=== PATIENT | female | born 1965 | race Caucasian/White ===

== ENCOUNTER 2017-12-09 11:46 | Outpatient (CLI) | payer OTHER ==
--- NOTE | 2017-12-09 12:21 | RAD ---
CHEST TWO VIEWS: History: Persistent cough and asthma. Comparison: None. FINDINGS: There is a peripheral nodule in the right midlung. No pneumothorax or pulmonary effusion. There is at electatic scarring in the right lower lobe. IMPRESSION: 1. Nodule in the peripheral right midlung. Given it is well defined and hyperdense nature, this may r epresent a granuloma. Either a follow up CT of the chest in 3 months or radiographic follow up recomm ended. 2. Atelectatic scarring in the right lung base. POS: [facility]
== END 2017-12-09 11:47 | disposition home or self-care (01) ==
LOC: SCSRAD 11:46
PROVIDERS: ATTEND Family Medicine
DX: J45.909 Unspecified asthma, uncomplicated (principal); J98.4 Other disorders of lung; R91.1 Solitary pulmonary nodule
CPT/HCPCS: 71046

== ENCOUNTER 2018-01-20 16:03 | Outpatient (CLI) | payer OTHER | END 2018-01-20 16:04 | disposition home or self-care (01) | LOC: BICMAMMO 16:03 | PROVIDERS: ATTEND Obstetrics & Gynecology | DX: Z12.31 Encounter for screening mammogram for malignant neoplasm of breast (principal); Z80.3 Family history of malignant neoplasm of breast | CPT/HCPCS: 77063; 77067 ==

== ENCOUNTER 2019-02-22 08:28 | Outpatient (CLI) | payer OTHER ==
[~2019-02-22 08:28] MED LIST: EPINEPHrine 1 MG/ML AMP ONE; Iopamidol 300 61% 50 ML VIAL FS ONE; Lidocaine 1% PF 10 ML AMP ONE; Sodium Chloride 0.9% (PF) 10 ML VIAL ONE
--- NOTE | 2019-02-22 10:25 | CT ---
Right upper extremity CT scan post arthrogram contrast: HISTORY: Right wrist pain Exam performed following right wrist arthrogram: FINDINGS: Contrast media is noted within the radiocarpal joint. No evidence for extension of contrast into the distal radial ulnar joint or into the middle carpal row. Minimal subchondral cystic changes are noted involving the scaphoid bone, distally as well as proximally and medially adjacent to the lunate bone. No evidence for triangle fibrocartilage complex tear. No evidence for a scapholunate ligament tear. No acute fracture or dislocation. No evidence for avascular necrosis. IMPRESSION: Minimal degenerative subchondral cystic changes of the proximal and distal scaphoid bone. No evidence for a triangular fibrocartilage complex tear. No evidence for scapholunate ligament tear.
--- NOTE | 2019-02-22 10:28 | RAD ---
Exam: Right wrist arthrogram: HISTORY: Pain right wrist Fluoroscopy time 2.0 minutes 0.67 gallagher centimeters squared Following informed consent the wrist was prepped and draped in usual sterile fashion. Local anesthesi a was obtained with 1% Xylocaine. A 23-gauge butterfly needle was introduced into the dorsal radial scaphoid joint and approximately 4 cc of iodinated contrast media was injected. Films confirm contras t within the radiocarpal joint without extension into the distal radioulnar joint or within the middle carpal row. IMPRESSION: Successful, unremarkable right wrist arthrogram. Following the arthrogram the patient was moved to CT for post arthrogram CT.
== END 2019-02-22 08:29 | disposition home or self-care (01) ==
LOC: RAD 08:28
PROVIDERS: ATTEND Orthopaedic Surgery
DX: M25.531 Pain in right wrist (principal)
CPT/HCPCS: 25246; J0171; J2001; Q9967

== ENCOUNTER 2019-03-15 13:31 | Outpatient (CLI) | payer OTHER ==
--- NOTE | 2019-03-15 15:25 | MMO ---
Bilateral MAMMO Bilat Screen [facility]. CLINICAL HISTORY: Patient is 53 years old and is seen for screening. The patient has no family history of breast cancer. The patient has a history of cervical cancer. VIEWS: The views performed were: bilateral craniocaudal with tomosynthesis and bilateral mediolateral oblique with tomosynthesis. FILMS COMPARED: The present examination has been compared to prior imaging studies performed at [facility] on 04/29/2011, and at [facility] on 11/08/2012, 12/17/2015 and 01/20/2018. MAMMOGRAM FINDINGS: The breasts are heterogeneously dense, which could obscure a lesion on mammography. There are no suspicious masses, suspicious calcifications, or new areas of architectural distortion. IMPRESSION: THERE IS NO MAMMOGRAPHIC EVIDENCE OF MALIGNANCY. A ROUTINE FOLLOW-UP MAMMOGRAM IN 1 YEAR IS RECOMMENDED. THE RESULTS OF THIS EXAM WERE SENT TO THE PATIENT. ACR BI-RADS Category 1 - Negative MAMMOGRAPHY NOTE: 1. A negative mammogram report should not delay a biopsy if a dominant of clinically suspicious mass is present. 2. Approximately 10% to 15% of breast cancers are not detected by mammography. 3. Adenosis and dense breasts may obscure an underlying neoplasm. Reported by: LIANG CAREY MD Electonically Signed: [id number]
== END 2019-03-15 13:32 | disposition home or self-care (01) ==
LOC: BICMAMMO 13:31
PROVIDERS: ATTEND Obstetrics & Gynecology
DX: Z12.31 Encounter for screening mammogram for malignant neoplasm of breast (principal); Z85.41 Personal history of malignant neoplasm of cervix uteri
CPT/HCPCS: 77063; 77067